=== PATIENT | male | born 1950 | race Caucasian/White ===

== ENCOUNTER 2024-05-18 19:46 | Emergency (ER) | payer OTHER, SELFPAY ==
[2024-05-18] VITALS (11 sets, daily range): BP systolic 117–149; BP diastolic 60–78; PULSE 63–85; RESP 15–23; O2SAT 97–99
--- NOTE | 2024-05-18 19:45 | RT.EKG_ITS ---
APPROVED REPORT Exam: Resting ECG Reason for Exam: Syncope Patient Location: E HR:91 bpm ECG Measurements Heart Rate 91 AXIS OH 198 P 33 QRSd 93 QRS -27 QT 361 T 26 QTc 444 Conclusion Sinus rhythm...normal P axis, V-rate 60- 99
--- NOTE | 2024-05-18 20:11 | ED.GENADUL_ITS ---
Discharge Plan Disposition Patient Disposition: Home Condition: Improving Discharge Details Clinical Impression: Syncope, Dehydration Primary Care Provider: Kisha Vo ED Provider: Gen Mata Home Meds and New Rx's Prescriptions: Continued metformin 500 mg tablet 1,000 mg PO BID Ozempic 1 mg/dose (4 mg/3 mL) pen injector 1 mg subcut QWEEK aspirin 81 mg capsule 81 mg PO DAILY simvastatin 10 mg tablet 10 mg PO DAILY hydrochlorothiazide 25 mg tablet 25 mg PO DAILY lisinopril 5 mg tablet 5 mg PO DAILY Discharge Instructions Instructions: Syncope (Fainting) (DC), Dehydration, Adult ED Discharge Data Discharge Physician: Gen Mata HPI General Date/Time Provider Initiated Documentation: 05/18/24 20:11 . HPI Narrative: Patient presents emergency department after he was working at the [employer] felt something coming down he cannot lay down and had a syncopal episode. Says he feels has not been drinking enough fluids denies any palpitations but does report episodes of dizziness. Denies any chest pain denies any shortness of breath Related Data Home Medications ?Medication ?Instructions ?Recorded ?Confirmed aspirin 81 mg capsule 81 mg PO DAILY 05/18/24 05/18/24 hydrochlorothiazide 25 mg tablet 25 mg PO DAILY 05/18/24 05/18/24 lisinopril 5 mg tablet 5 mg PO DAILY 05/18/24 05/18/24 metformin 500 mg tablet 1,000 mg PO BID 05/18/24 05/18/24 semaglutide 1 mg/dose (4 mg/3 mL) 1 mg subcut QWEEK 05/18/24 05/18/24 subcutaneous pen injector (Ozempic) simvastatin 10 mg tablet 10 mg PO DAILY 05/18/24 05/18/24 Allergies Allergy/AdvReac Type Severity Reaction Status Date / Time empagliflozin (From AdvReac Mild Other (See Verified 05/18/24 20:02 Jardiance) Comment) General Stated Complaint: [id number] AMISH: 3 Review of Systems Narrative: Review of Systems: Constitutional: No fevers, chills, sweats Eye: No recent visual problems ENT: No ear pain, nasal congestion, sore throat Respiratory: No shortness of breath, cough Cardiovascular: No Chest pain, palpitations, syncope Gastrointestinal: No nausea, vomiting, diarrhea Genitourinary: No hematuria Royal/Lymph: Negative for bruising tendency, swollen lymph glands Endocrine: Negative for excessive thirst, excessive hunger Musculoskeletal: No back pain, neck pain, joint pain, muscle pain, decreased range of motion Integumentary: No rash, pruritus, abrasions Neurologic: Alert & oriented X 4 Psychiatric: No anxiety, depression Exam Narrative Exam Narrative: Exam; vitals signs as reported above normal Constitutional; In no acute distress, afebrile General: cooperative, healthy appearing, comfortable and no acute distress HEENT: Head: normal to inspection, no palpable skull fracture and normocephalic atraumatic Eyes: : appearance normal, both eyes and all related structures EOM intact bilaterally Pupils: PERRL : conjunctiva normal Direct ophthalmoscopy: normal light reflex, normal conjunctiva, normal visual acuity Ears: Normal TM, normal external canal Nose: normal no rhinorreha Neck no JVD, supple non tender Neck: normal visual inspection, full ROM and no lymphadenopathy Chest: normal inspection of the chest Respiratory : normal respiratory effort and able to speak in complete sentences no wheezing no rales Cardio Rate: regular rate, rhythm: regular rhythm normal heart sounds S1 and S2 no murmurs, gallops, or rubs GI : normal to inspection, normal bowel sounds, soft, non tender, non distended, no organomegaly Back/Spine/ no CVA tenderness Thoracic/Lumbar Spine: no tenderness or deformities Skin no rashes or lesions Neuro: patient alert oriented x 4 and no meningeal signs, Cranial Nerves: CN's II-XI intact bilaterally, Cognition: normal cognition, Speech: speech normal, Gait: normal gait, Depp tendon reflexes normal 2+ muscle strength 5/5 bilaterally Extremities, no edema, full range of motion, normal strength Course Vital Signs Vital signs: Vital Signs Pulse 85 05/18/24 19:49 Respiratory Rate 15 05/18/24 19:49 Blood Pressure 149/78 H 05/18/24 19:49 Pulse Oximetry 99 05/18/24 19:49 Pulse 85 05/18/24 19:49 Respiratory Rate 15 05/18/24 19:49 Blood Pressure 149/78 H 05/18/24 19:49 Blood Pressure Position Sitting 05/18/24 19:49 Pulse Oximetry 99 05/18/24 19:49 Oxygen Delivery Method Room Air 05/18/24 19:49 Oxygen Flow Rate 0 05/18/24 19:49 Medical Decision Making MDM: Summary: Patient presented to the emergency department after his had a syncopal episode at work stated he feels dehydrated he has not been drinking enough. 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 Patient feels better after hydration and wants to be discharged home Data Review Analysis All the data on this patient was reviewed by me including laboratory and imaging studies as well as bedside studies performed by me Independent review of Studies Imaging CT scan of the abdomen pelvis shows no abnormality Lab: Labs show no abnormality shows mild elevation of the BUN to creatinine ratio Risk Stratification: Patient with syncope most likely from dehydration who will be discharged home Differential Diagnosis: 1. Syncope 2. Hypovolemia 3. Dehydration 4. Vasovagal syncope 5. Arrhythmia Consultants: Shared disposition: Patient assess disposition and will be discharged home Impression: Medical Records Medical records reviewed: Yes I reviewed the patient's medical records. Imaging Data Radiologic Study: Imaging: CT Scan My impression: CT scan of the head showed no abnormality Lab Data Lab results reviewed: Yes I reviewed the patient's lab results. ECG Data Attestation: I personally reviewed and interpreted this ECG (s) as follows: Prior ECG tracings: available for review Interpretation: Heart rate 91 normal sinus rhythm no acute ST-T changes normal axis Quality:SDOH Health Related Social Needs: 2 No Data to Display PFSH All Active Problems (Updated 05/18/24 @ 22:09 by Gen Mata MD) Dehydration (Acute) Syncope (Chronic) Social History Smoking risk assessment performed?: No Vital Signs & Lab Results Vital Signs Most Recent Vital Signs: Most Recent Vital Signs Pulse Resp BP Pulse Ox 65 18 117/71 97 05/18/24 21:48 05/18/24 21:48 05/18/24 21:48 05/18/24 21:48 Point of Care Results Nursing Point of Care Results: 2 Finger Stick Blood Glucose 155 H (70 - 120) 05/18/24 20:25 Lab Results 05/18/24 20:18 05/18/24 20:18 Blood Type / Crossmatch: 2 No Data to Display Complete Blood Count: 2 White Blood Count 7.17 10^3/uL (4.4-10.8) 05/18/24 20:18 Red Blood Count 4.58 10^6/uL (4.36-5.78) 05/18/24 20:18 Hemoglobin 13.6 g/dL (13.5-17.5) 05/18/24 20:18 Hematocrit 40.6 % (40.0-50.0) 05/18/24 20:18 Platelet Count 248 10^3/uL (130-400) 05/18/24 20:18 Complete Metabolic Panel: 2 Sodium 138 mmol/L (136-145) 05/18/24 20:18 Potassium 4.0 mmol/L (3.5-5.1) 05/18/24 20:18 Chloride 98 mmol/L (98-107) 05/18/24 20:18 Carbon Dioxide 31.3 mmol/L (21.0-32.0) 05/18/24 20:18 BUN 16 mg/dL (7-18) 05/18/24 20:18 Creatinine 1.0 mg/dL (0.70-1.30) 05/18/24 20:18 Est GFR (CKD-EPI 2020) 80.47 (mL/min/1.73m2) 05/18/24 20:18 Magnesium 1.7 mg/dL (1.8-2.4) L 05/18/24 20:18 Calcium 9.9 mg/dL (8.5-10.1) 05/18/24 20:18 Albumin 4.0 g/dL (3.4-5.0) 05/18/24 20:18 Glucose 151 mg/dL (74-106) H 05/18/24 20:18 Liver Function Panel: 2 Alanine Aminotransferase (ALT/SGPT) 26 U/L (16-63) 05/18/24 20: 18 Aspartate Amino Transf (AST/SGOT) 25 U/L (15-37) 05/18/24 20:18 Coagulation Panel: 2 No Data to Display Cardiac Panel: 2 Troponin I 10 ng/L (<or=76) 05/18/24 Arterial Blood Gas: 2 No Data to Display Venous Blood Gas: 2 No Data to Display Pancreas Panel: 2 No Data to Display Thyroid Panel: 2 No Data to Display Infectious Disease: 2 No Data to Display Blood Cultures: 2 No Data to Display Toxicology Panel: 2 No Data to Display
--- NOTE | 2024-05-18 20:15 | DI.CT_ITS ---
Exam(s) CT HEAD WO EXAM: CT HEAD WO CLINICAL HISTORY: syncope. TECHNIQUE: Imaging Protocol: Axial computed tomography images with coronal and sagittal reformatted images were created and reviewed COMPARISON: No exams were available for comparison FINDINGS: There are no skull fractures. There is no fluid in the visualized paranasal sinuses. There is no evidence of intracranial hemorrhage, mass effect, or shift of midline structures. There are no extra-axial fluid collections. The ventricles are not enlarged or shifted and there is no blo od within the ventricular system nor within the basal cisterns. IMPRESSION: No acute intracranial findings on this noninfused CT scan of the brain. RADIATION DOSE DELIVERED: 827.23mGy.cm Total DLP DATA REPOSITORY: All CT scans at this facility are submitted to the National Radiology Data Registry (NRDR) Dose Index Registry (DIR) with the [employer] ([employer]). RADIATION OPTIMIZATION: All CT scans at this facility use at least one of these dose optimization te chniques: automated exposure control; mA and/or kV adjustment per patient size (includes targeted exa ms where dose is matched to clinical indication); or iterative reconstruction.
[2024-05-18] MEDS: Normal Saline 1,000 ML 1000 ML IV (20:34)
[2024-05-18 20:39] LABS: Abs Immature Grans 0.01 10^3/uL (0.0-0.06); Absolute Basophil Count 0.11 10^3/uL (0.0-0.2); Absolute Eosinophil Count 0.24 10^3/uL (0.0-0.7); Absolute Monocyte Count 0.73 10^3/uL (0.1-0.8); Absolute Neutrophil Count 3.78 10^3/uL (1.2-6.7); Basophils % 1.5 %; Eosinophils % 3.3 %; HCT 40.6 % (40.0-50.0); HGB 13.6 g/dL (13.5-17.5); Immature Grans % 0.1 %; Lymphocytes % 32.1 %; MCH 29.7 pg (27.0-33.0); MCHC 33.5 % (32.0-36.0); MCV 89 fL (80-95); Monocytes % 10.2 %; Neutrophils % 52.8 %; Platelet Count 248 10^3/uL (130-400); RBC 4.58 10^6/uL (4.36-5.78); RDW 12.7 % (11.8-14.1); RDW-SD 41.3 fL; WBC 7.17 10^3/uL (4.4-10.8)
[2024-05-18 20:54] LABS: ALT 26 U/L (16-63); AST 25 U/L (15-37); Alkaline Phosphatase 76 U/L (46-116); Anion Gap 8.7 mmol/L (3-11); BUN 16 mg/dL (7-18); Bilirubin, Total 0.47 mg/dL (0.2-1.0); CO2 31.3 mmol/L (21.0-32.0); Calcium 9.9 mg/dL (8.5-10.1); Chloride 98 mmol/L (98-107); Estimated GFR 80.47 (mL/min/1.73m2); Glucose 151 mg/dL (74-106); Magnesium 1.7 mg/dL (1.8-2.4); Sodium 138 mmol/L (136-145); Total Protein 7.6 g/dL (6.4-8.2); Troponin I 6 ng/L (<or=76)
[2024-05-18 21:54] LABS: Troponin I 10 ng/L (<or=76)
--- NOTE | 2024-05-18 21:58 | DI.VRAD_ITS ---
PROCEDURE INFORMATION: Exam: CT Head Without Contrast Exam date and time: 05/18/2024 9:05 PM Age: 73 years old Clinical indication: Other: Syncope TECHNIQUE: Imaging protocol: Computed tomography of the head without contrast. COMPARISON: No relevant prior studies available. FINDINGS: Brain: Moderate generalized cerebral/cerebellar atrophy. Mild periventricular bilateral white matter hypodensities which are nonspecific but most commonly associated with chronic microvascular ischemia in this age group. The IACs are grossly normal. No extra-axial fluid collections. Mild prominence of the peripheral CSF spaces, related to generalized atrophy. No evidence of acute intracranial hemorrhage. Cerebral/cerebellar pierre-white matter differentiation is well maintained. No CT evidence of large territory acute or subacute intracranial ischemia/infarct. No intracranial mass lesions. No midline shift or herniation. Cerebral ventricles: Slight compensatory ventriculomegaly secondary to central atrophy. Pituitary gland and sella: The sella is grossly normal. Paranasal sinuses: Visualized paranasal sinuses are clear. Mastoid air cells: Visualized mastoid air cells are clear. Orbital cavities: No acute intraorbital findings. Bones: No acute osseous findings. Soft tissues: No acute soft tissue findings. Vasculature: Mild calcific atherosclerosis. No asymmetric vascular hyperdensities suggestive of thrombosis are identified. IMPRESSION: 1. No acute intracranial process. No intracranial hemorrhage or mass effect. 2. Atrophy and minor microvascular changes consistent with age. Dictated and Authenticated by: Sulaiman Cabral MD. Orderin Adolfo Blevins MD
== END 2024-05-18 22:24 | disposition home or self-care (01) ==
PROVIDERS: Emergency Provider Emergency Medicine Emergency Medical Services; PCP Internal Medicine
DX: R55 Syncope and collapse (principal); E86.0 Dehydration; E11.9 Type 2 diabetes mellitus without complications; I10 Essential (primary) hypertension; Z79.84 Long term (current) use of oral hypoglycemic drugs; Z79.85 Long-term (current) use of injectable non-insulin antidiabetic drugs; Z79.82 Long term (current) use of aspirin
CPT/HCPCS: 80053; 93005; 96360; 99285; 70450; 83735; 84484; 85025; 93010